=== PATIENT | female | born 1995 | race Caucasian/White ===

== ENCOUNTER 2017-12-03 12:11 | Outpatient (CLI) | END 2017-12-03 14:09 | disposition home or self-care (01) ==

== ENCOUNTER 2018-02-10 17:12 | Outpatient (CLI) | END 2018-02-10 21:05 | disposition home or self-care (01) ==

== ENCOUNTER 2018-02-19 08:21 | Inpatient (IN) | END 2018-02-22 13:40 | disposition home or self-care (01) | DRG 766 ==

== ENCOUNTER 2018-11-03 21:17 | Inpatient (IN) | payer OTHER ==
[~2018-11-03] VITALS: Ht 152.4 cm; Wt 84.0 kg
[~2018-11-03 21:17] MED LIST: PREN1TAB17 PO
[2018-11-03 21:25] VITALS: Ht 152.4 cm; Wt 84.0 kg
[2018-11-03 21:26] VITALS: BP 112/68; PULSE 110; RESP 17
[2018-11-03] MEDS ORDERED: LACTATED RINGER'S 1,000 ML IV SCH (22:00)
[2018-11-03] MEDS ORDERED: ACETAMINOPHEN 325 MG TAB PO ONE (22:00)
[2018-11-03] MEDS: LACTATED RINGER'S 1,000 ML IV SCH (23:59)
--- NOTE | 2018-11-04 01:05 | HP ---
Date/Time of Note Date/Time of Note DATE: 11/04/18 TIME: 01:00 OB - History Hx of Present Free Text/Dictation Patient is a 22-year-old 3 para 2 at 24 weeks of gestation with estimated date of delivery February 23, 2019 Patient just arrived from [facility] and immediately came here to the hospital directly from the airport She reports of having urinary tract infection in [facility] which she was rece iving IV antibiotic treatments daily Patient also reports of possible mosquito bites while in [facility] She is complaining of fevers, total body aches and flulike symptoms and back pain Patient reports positive movement, denies vaginal bleeding and leaking fluid, denies uterine contractions Estimated Due Date: Feb 23, 2019 : 3 Para: 2 Care: Limited Care Past Family/Social History * Past medical and past surgical history are noncontributory to this admission OB Admission Exam Vital Signs Vital Signs Vital Signs VS - Last 72 Hours, by Label Date Temp Pulse Resp B/P (MAP) Pulse Ox O2 O2 Flow FiO2 Time Delivery Rate 11/04/18 99.4 05:15 11/04/18 100.4 04:30 11/04/18 98.7 02:00 11/04/18 98.7 01:35 11/03/18 101.3 22:50 11/03/18 100.3 22:10 11/03/18 100.3 110 17 112/68 Room Air 21:26 (83) Physical Exam HEENT: WNL Heart: Rhythm Normal Lungs: Clear, Equal Abdomen: WNL Extremities: Normal Reflexes: Normal Membranes: Intact Heart Rate: 140's Accelerations: Accelerations Present Decelerations: No Decelerations Contractions on Admission: None Last 72 hours Lab Results CBC & BMP 11/03/18 22:07 Liver Function Test 11/03/18 22:07 Alanine Aminotransferase (ALT/SGPT) 20 Albumin 3.8 Alkaline Phosphatase 83 Aspartate Amino Transf (AST/SGOT) 26 Direct Bilirubin 0.00 Total Protein 7.1 PROCEDURE: US OB. CLINICAL INDICATION: labor TECHNIQUE: Transabdominal views of the pelvis are available for review. COMPARISON: Obstetric ultrasound February 10, 2018 FINDINGS: Noted is a single intrauterine gestation in breech lie with positive heart beat measuring 132 beats per minute. The biparietal diameter measures 6 cm corresponding to a gestational age 24 weeks 3 days. Femur length measures 4.4 cm corresponding to a gestational age 24 weeks 2 days. Abdominal circumference measures 20 cm corresponding to a gestational age 24 weeks 4 days. FL/AC ratio i s 21.9 which is within normal limits. Estimated weight is 703 g. Estimated date of delivery by ultrasound criteria is February 20, 2019. No gross anomaly is seen, however, anatomic survey was not performed. The amniotic fluid index was not calculated. Estimated date of delivery is February 20, 2019. The placenta is posterior fundal grade 1. There is no evidence of previa. Maternal cervix is closed measuring 4.6 cm in length. IMPRESSION: Single intrauterine gestation in breech lie with positive heart beat of calculated gestational age 24 weeks 3 days. No gross anomaly. Fluid qualitatively within normal limits. Placenta posterior fundal grade 1. .Esteban Willson MD, MD Date Time Electronically viewed and signed by .Esteban Willson MD, MD on 11/03/2018 22:20 .A/ CC: KO WALDRON MD [phone] PROCEDURE: US OB biophysical profile. CLINICAL INDICATION: Labor TECHNIQUE: Multiple sonographic images of the pelvis were obtained. The images were reviewed on a PACS workstation. COMPARISON: None FINDINGS: Noted is a single intrauterine gestation in breech lie with positive heart beat measuring 139 beats per minute. The amniotic fluid index was not measured, however, the volume is qualitatively normal with a maximum pocket measuring 8 cm in diameter. Biophysical profile: movement 2/2 tone 2/2. breathing 2/2 GUANACO 2/2 Total 12/31 IMPRESSION: Normal biophysical profile . . .Esteban Willson MD, Date Time Electronically viewed and signed by .Esteban Willson MD, MD on 11/03/2018 22:30 .A/ CC: KO WALDRON MD [phone] PROCEDURE: Renal US. CLINICAL INDICATION: Possible pyelonephritis, pain TECHNIQUE: Multiple sonographic images of the kidneys and bladder were obtained. The images were reviewed on a PACS workstation. COMPARISON: No prior studies are available for comparison. FINDINGS: The right kidney measures 10.4 cm and the left kidney 11.2 cm in length. No renal mass, calculus or hydronephrosis is seen bilaterally. No abnormality of the bladder is seen. IMPRESSION: No abnormality seen. RPTAT: HJES .Tian Bill MD, MD Date Time Electronically viewed and signed by .Tian Bill MD, MD on 11/04/2018 02:57 .S/ CC: KO WALDRON MD [phone] Microbiology INFLUENZA A & B BY EIA Final INFLU A&B BY EIA INFLUENZA A NEGATIVE (Ref Range Neg) INFLUENZA B NEGATIVE (Ref Range Neg) OB Assessment/Plan Reason for admission: other (Suspected pyelonephritis) Other plan: Admit to antepartum Urine culture and blood cultures x2 done IV antibiotics Infectious disease consult for possible Zika exposure Influenza A and B negative Copies To: CC: HUMERA NUNEZ MD ; KO WALDRON MD Nov 04, 2018 01:05
[2018-11-04] MEDS: CEFTRIAXONE 1 GM/50 ML (PMX) 50 ML IVPB SCH (01:37)
[2018-11-04] MEDS: SOD CHLORIDE 0.9% 1,000 ML IV SCH ×3 (01:37→16:30)
[2018-11-04] MEDS: OSELTAMIVIR 75 MG CAP PO SCH ×3 (02:44→21:10)
[2018-11-04] MEDS: ACETAMINOPHEN 325 MG TAB PO PRN ×4 (04:30→23:21)
[2018-11-04] MEDS: PRENATAL VITAMIN PO SCH (09:38)
--- NOTE | 2018-11-04 18:42 | QN ---
Documentation Comment progress note patient seen and evaluated no complaints vs tmax 100.4 ab gravid, positive left cva tenderness extremity no edema no calf tenderness a/ iup at 24 wks ga, pyelonephritis currently on iv antibiotics p/ f/u cultures continue present management HUMERA NUNEZ MD Nov 04, 2018 18:42
[2018-11-04] MEDS: LACTATED RINGER'S 1,000 ML IV SCH ×2 (20:40→23:59)
[2018-11-05] MEDS: CEFTRIAXONE 1 GM/50 ML (PMX) 50 ML IVPB SCH (01:04)
[2018-11-05] MEDS: SOD CHLORIDE 0.9% 1,000 ML IV SCH ×3 (01:53→19:30)
[2018-11-05] MEDS: OSELTAMIVIR 75 MG CAP PO SCH ×2 (09:20→21:09)
[2018-11-05] MEDS: PRENATAL VITAMIN PO SCH (09:22)
--- NOTE | 2018-11-05 17:43 | QN ---
Documentation Comment progress note patient seen and evaluated no complaints vs tmax 100.5 ab gravid, mild left cva tenderness extremity no edema no calf tenderness a/ iup at 24 wks ga, pyelonephritis currently on iv antibiotics p/ f/u cultures f/u infectious disease specialist continue present management HUMERA NUNEZ MD Nov 05, 2018 17:43
--- NOTE | 2018-11-05 19:10 | CONS ---
DATE OF ADMISSION: 11/03/2018 DATE OF CONSULTATION: 11/05/2018 TYPE OF CONSULTATION: Infectious disease. REASON FOR CONSULTATION: Antibiotic management. HISTORY OF PRESENT ILLNESS: Nadeen Collazo is a 22-year-old female, 3, para 2 at 24 weeks gesta tion. Her estimated delivery date is 02/23/2019. She arrived from [facility] and came to the [facility] from the airport. She reports having urinary tract infection in [facility] for which she w as receiving IV antibiotics on a daily basis. She has fever, total body aches, flu-like symptoms and back pain. She also notes that she has multiple mosquito bites. PAST MEDICAL HISTORY: She is 3, para 2. She has no other medical history of high blood pres sure, diabetes or heart disease. She has no vaginal bleeding or leaking fluid. FAMILY HISTORY: Noncontributory. SOCIAL HISTORY: She does not smoke, drink or abuse drugs. ALLERGIES: NONE TO PENICILLIN, SULFA OR FOODS. MEDICATIONS: Per chart. REVIEW OF SYSTEMS: As per HPI. PHYSICAL EXAMINATION: GENERAL: The patient is well-developed, well-nourished female, alert, responsive, in no acute distre ss. VITAL SIGNS: Stable. She is afebrile. SKIN: Without generalized rash. HEENT: Within normal limits. NECK: Supple. LYMPH NODES: None palpable. CHEST: Decreased breath sounds at the bases. HEART: Without murmur or gallop. ABDOMEN: Soft. She is obviously 24 weeks. No organosplenomegaly or masses. EXTREMITIES: Without cyanosis, clubbing, or edema. RECTAL AND GENITAL: Deferred. NEUROLOGIC: No focal neurological abnormality. ANCILLARY LABORATORY DATA: Her white count is 11.8, H and H of 10.9 and 32.7, platelet count 267,000 . BUN and creatinine 4/0.50, glucose of 94. An ultrasound was done, which showed a single intrauter ine gestation and breech lie with positive heartbeat. No gross anomalies. Urine culture is gr owing Enterococcus and Lenore albicans. Blood cultures are negative. She only has 20,000 to 30,000 colony-forming units of enterococcus and less than 10,000 colony-forming units of Lenore per mL. S he is currently on ceftriaxone. My feeling is that the urine culture is either a contaminant or not relevant. I am going to repeat a urine culture. Continue her on Rocephin or ceftriaxone. I will di ctate my findings to [employer] to Dr. Nunez and Dr. Portillo. Dictated By: SHANAE ROMANO MD, JD/NTS Conf#: [id number] DID#: [id number] CC: HUMERA NUNEZ MD;*EndCC*
[2018-11-06] MEDS: CEFTRIAXONE 1 GM/50 ML (PMX) 50 ML IVPB SCH (03:00)
[2018-11-06] MEDS: SOD CHLORIDE 0.9% 1,000 ML IV SCH ×2 (03:00)
[2018-11-06] MEDS: PRENATAL VITAMIN PO SCH (09:09)
[2018-11-06] MEDS: OSELTAMIVIR 75 MG CAP PO SCH (09:15)
--- NOTE | 2018-11-06 15:01 | CONS ---
Assessment/Plan Assessment/Plan Hospital Course (Demo Recall) Patient is alert had been afebrile denies dysuria hematuria frequency or urgency. She remains on Rocephin. Physical examination well-developed well- nourished young woman who is alert in no distress head atraumatic normocephalic neck is supple chest rise symmetrical breath sounds clear heart S1-S2 abdomen soft bowel sounds present Assessment: 1. Resolving UTI 2. 24 weeks gestation 3. Obesity Plan: Patient is doing better, pending repeat urine culture, possible discharge home today of antibiotics Consultation Date/Type/Reason Admit Date/Time Nov 03, 2018 at 23:45 Initial Consult Date Type of Consult id Date/Time of Note DATE: 11/06/18 TIME: 15:01 Exam/Review of Systems Exam Vitals Vital Signs Date Temp Pulse Resp B/P (MAP) Pulse Ox O2 O2 Flow FiO2 Time Delivery Rate 11/05/18 100.5 00:00 11/03/18 110 17 112/68 Room Air 21:26 (83) Intake and Output 11/05/18 11/05/18 11/06/18 1515:00 23:00 07:00 IntakeIntake Total 1000 ml 250 ml BalanceBalance 1000 ml 250 ml Results Result Diagram: 11/03/18220611/03/182206 Medications Medication Current Medications Lactated Ringer's 1,000 ml @ 125 mls/hr Q8H IV ; Start 11/03/18 at 23:59 Prenat Multivit/ [place]/Iron/Folic Ac () 1 tab DAILY PO Last administered on 11/06/18at 09:09; Admin Dose 1 TAB; Start 11/04/18 at 09:00 Acetaminophen (Tylenol Tab) 650 mg Q4H PRN PO .PAIN OR TEMP Last administered on 11/04/18at 23:21; Admin Dose 650 MG; Start 11/04/18 at 00:00 Ceftriaxone Sodium 50 ml @ 100 mls/hr Q24H IVPB Last administered on 11/06/18at 03:00; Admin Dose 100 MLS/HR; Start 11/04/18 at 01:00 Sodium Chloride 1,000 ml @ 125 mls/hr Q8H IV Last administered on 11/06/18at 03:00; Admin Dose 125 MLS/HR; Start 11/04/18 at 00:30 ASHLEIGH GARCIA NP Nov 06, 2018 15:01
[2018-11-06] MEDS: LACTATED RINGER'S 1,000 ML IV SCH (16:30)
--- NOTE | 2018-11-06 20:08 | QN ---
Documentation Comment 22 y.o been on rocephin , tamiflu last temp 100.5 on yesterday am today WBC sl higher ID saw the patient MARIBEL MURILLO MD Nov 06, 2018 20:08
[2018-11-07] MEDS: SOD CHLORIDE 0.9% 1,000 ML IV SCH ×6 (00:07→23:30)
[2018-11-07] MEDS: CEFTRIAXONE 1 GM/50 ML (PMX) 50 ML IVPB SCH (01:05)
[2018-11-07] MEDS: PRENATAL VITAMIN PO SCH (08:50)
--- NOTE | 2018-11-07 21:57 | QN ---
Documentation Comment Patient denies any fever or chills. Denies any leaking of fluid, vaginal bleeding or decreased movement. General appearance: Alert and oriented x4 does not appear to be in any acute distress Abdomen: Soft, gravid, fundal height consider gestational age, no tenderness, no tenderness, no guarding, no rigidity There is CVA tenderness in the right side noted still VS - Last 72 Hours, by Label Date Temp Pulse Resp B/P (MAP) Pulse Ox O2 O2 Flow FiO2 Time Delivery Rate 11/05/18 100.5 00:00 11/04/18 102.5 23:21 Assessment IUP at 24 weeks and 4 days Pyelonephritis Undergoing treatment with Rocephin every 24 hours Currently Fever improved. T < 100.3 Renal ultrasound normal. Patient pyelonephritis being followed by ID Resident of [facility] area, had mosquito bites Physical labs are pending Continue same antibiotics Follow-up with a urine culture Continue IV hydration Intermittent monitoring Follow-up with perinatologist and ID in [place] MADELEINE WILSON MD Nov 07, 2018 21:57
[2018-11-08] MEDS: CEFTRIAXONE 1 GM/50 ML (PMX) 50 ML IVPB SCH
[2018-11-08] MEDS: SOD CHLORIDE 0.9% 1,000 ML IV SCH ×4 (04:20→19:30)
[2018-11-08] MEDS: PRENATAL VITAMIN PO SCH (09:11)
--- NOTE | 2018-11-08 10:26 | QN ---
Documentation Comment 24+wks GA Pyelonephritis on Rocephin smptoms improved U/u Enterococcus NST reassuring for GA [place] No CTxs pelvic deferred --->Continuous antibiotics --->Clsoe Observation GEORGE BELLAMY M.D. Nov 08, 2018 10:26
[2018-11-08] MEDS ORDERED: SOD CHLORIDE 0.9% 1,000 ML IV SCH (21:00)
[2018-11-09] MEDS: CEFTRIAXONE 1 GM/50 ML (PMX) 50 ML IVPB SCH (01:05)
--- NOTE | 2018-11-09 09:48 | QN ---
Documentation Comment progress note patient seen and evaluated no complaints vs stable afebrile ab gravid, mild left cva tenderness extremity no edema no calf tenderness a/ iup at 24 wks ga, pyelonephritis symptoms resolved stable afebrile p/discharge home HUMERA NUNEZ MD Nov 09, 2018 09:48
--- NOTE | 2018-11-10 08:23 | DS ---
DATE OF ADMISSION: 11/03/2018 DATE OF DISCHARGE: 11/09/2018 PRIMARY DIAGNOSIS: Intrauterine at 24 weeks gestational age with pyelonephritis, undeliver ed. PROCEDURE: None. CONDITION ON DISCHARGE: Stable. DIET: Regular. MEDICATIONS ON DISCHARGE: Macrobid 100 mg p.o. b.i.d., #14. ACTIVITIES: As tolerated. DISCHARGE SUMMARY: Ms. Nadeen Collazo was admitted on 11/04/2018 secondary to symptomatic pyelonephriti s. She was given IV antibiotics. Currently denies any headache, nausea, vomiting, shortness of kelsey th, or visual changes. She will be discharged home today, on 11/09/2018, with strict labor p recautions and kick count. The patient was advised to follow up in clinic, especially for the Zika virus results secondary to recent visit to [facility] [place]. Dictated By: HUMERA WHEELER/ZONIA Conf#: [id number] DID#: [id number]
== END 2018-11-09 10:10 | disposition home or self-care (01) | DRG 833 ==
LOC: OBT 21:17 → L-D 21:19 → OBT 23:45 → L-D 23:45
PROVIDERS: ADMIT Obstetrics & Gynecology; ATTEND Obstetrics & Gynecology
DX: O23.02 Infections of kidney in pregnancy, second trimester (principal); O99.212 Obesity complicating pregnancy, second trimester; Z3A.24 24 weeks gestation of pregnancy
CPT/HCPCS: 76775; 76815; 76817; 76818; 80053; 81001; 81003; 85025; 87086; 87400; G0463; J0696; J7030; J7120

== ENCOUNTER 2019-02-09 13:55 | Inpatient (IN) | payer OTHER ==
[~2019-02-09] VITALS: Ht 152.4 cm; Wt 198.0 kg
[~2019-02-09 13:55] MED LIST changes: +FER325 ORAL; +LABE100T7 PO; +PANT40TA4 PO; +PRED10TA PO; +PRED20TA PO; +SUMA25TA34 PO; +VALA500T PO
[2019-02-09 15:20] VITALS: BP 124/77; PULSE 98; RESP 19
[2019-02-09] MEDS ORDERED: ACETAMINOPHEN 325 MG TAB PO PRN (17:00)
[2019-02-09] MEDS: LACTATED RINGER'S 1,000 ML IV SCH (17:07)
[2019-02-10] MEDS: LACTATED RINGER'S 1,000 ML IV SCH ×3 (00:36→19:00)
[2019-02-10] MEDS ORDERED: PRENATAL VITAMIN PO SCH (09:00)
[2019-02-10] MEDS ORDERED: CARBOPROST 250 MCG INJ IM PRN (14:00)
[2019-02-10] MEDS ORDERED: METHYLERGONOVINE 0.2 MG INJ IM PRN (14:00)
[2019-02-10] MEDS ORDERED: MISOPROSTOL 200 MCG TAB PR PRN (14:00)
[2019-02-10] MEDS ORDERED: CEFAZOLIN 2 GM/50 ML (PMX) 50 ML IVPB SCH (14:00)
[2019-02-10] MEDS ORDERED: OXYTOCIN 30 UNITS/LR 500 ML IV PRN (14:00)
[2019-02-11] MEDS: LACTATED RINGER'S 1,000 ML IV SCH ×5 (03:04→23:20)
[2019-02-11] MEDS ORDERED: ONDANSETRON 4 MG INJ ONE (06:02)
[2019-02-11] MEDS ORDERED: OXYTOCIN 10 UNIT INJ ONE (06:02)
[2019-02-11] MEDS ORDERED: OXYTOCIN 30 UNITS/LR 500 ML BAG IV ONE (06:02)
[2019-02-11] MEDS ORDERED: morphine SULFATE/PF (10 MG/10 ML) INJ ONE (06:02)
[2019-02-11] MEDS ORDERED: OXYTOCIN 30 UNITS/LR 500 ML IV SCH ×3 (07:18→16:56)
[2019-02-11] MEDS ORDERED: METHYLERGONOVINE 0.2 MG INJ IM PRN ×3 (07:30→17:00)
[2019-02-11] MEDS ORDERED: OXYTOCIN 30 UNITS/LR 500 ML IV PRN ×3 (07:30→17:00)
[2019-02-11] MEDS ORDERED: MISOPROSTOL 200 MCG TAB PR PRN ×3 (07:30→17:00)
[2019-02-11] MEDS ORDERED: CARBOPROST 250 MCG INJ IM PRN ×3 (07:30→17:00)
[2019-02-11] MEDS ORDERED: NACL 0.9% 3 ML SYG IV SCH ×3 (07:30→17:00)
[2019-02-11] MEDS ORDERED: DIPHENHYDRAMINE 50 MG INJ IV PRN (07:30)
[2019-02-11] MEDS ORDERED: morphine 2 MG INJ IV PRN (07:30)
[2019-02-11] MEDS ORDERED: NALOXONE (0.4 MG/ML) INJ IV PRN (07:30)
[2019-02-11] MEDS ORDERED: ONDANSETRON 4 MG INJ IV PRN (07:30)
[2019-02-11 09:50] VITALS: BP 135/84; PULSE 67; RESP 17
[2019-02-11 11:45] VITALS: BP 121/76; PULSE 68; RESP 18
[2019-02-11 16:55] VITALS: BP 128/80; PULSE 70; RESP 17
[2019-02-11] MEDS ORDERED: LANOLIN HPA 1 PKT TOP PRN (17:00)
[2019-02-11] MEDS ORDERED: NA PHOSPHATE/BIPHOS 133 ML ENEMA PR PRN (17:00)
[2019-02-11 20:00] VITALS: BP 123/77; PULSE 73; RESP 20
[2019-02-11] MEDS: KETOROLAC 30 MG INJ IV PRN (20:26)
[2019-02-11] MEDS: SENNA/DOCUSATE NA (8.6MG/50MG) TAB PO SCH (20:30)
[2019-02-12] MEDS: KETOROLAC 30 MG INJ IV PRN (04:03)
[2019-02-12 04:16] VITALS: BP 108/73; PULSE 76; RESP 20
[2019-02-12 08:00] VITALS: BP 115/87; PULSE 60; RESP 18
[2019-02-12] MEDS: LACTATED RINGER'S 1,000 ML IV SCH (08:56)
[2019-02-12] MEDS: SENNA/DOCUSATE NA (8.6MG/50MG) TAB PO SCH ×2 (09:23→21:30)
[2019-02-12] MEDS: OXYCODONE/ACETAMINOPHEN (5/325) TAB PO PRN ×2 (11:30→21:30)
[2019-02-12 15:39] VITALS: BP 136/90; PULSE 88; RESP 16
[2019-02-12] MEDS ORDERED: BISACODYL 10 MG SUPP PR ONE (16:00)
[2019-02-12] MEDS ORDERED: IBUPROFEN 600 MG TAB PO PRN (16:00)
[2019-02-12] MEDS: IBUPROFEN 800 MG TAB PO PRN (16:20)
[2019-02-12 21:30] VITALS: BP 121/64; PULSE 63; RESP 20
[2019-02-12] MEDS: FERROUS SULFATE (EC) 325 MG TAB PO SCH (21:30)
[2019-02-13] MEDS: IBUPROFEN 800 MG TAB PO PRN ×2 (00:49→16:37)
[2019-02-13] MEDS: OXYCODONE/ACETAMINOPHEN (5/325) TAB PO PRN ×3 (04:25→22:23)
[2019-02-13 04:28] VITALS: BP 116/64; PULSE 67; RESP 20
[2019-02-13 08:00] VITALS: BP 130/88; PULSE 59; RESP 18
[2019-02-13] MEDS: SENNA/DOCUSATE NA (8.6MG/50MG) TAB PO SCH ×2 (08:11→22:23)
[2019-02-13] MEDS: FERROUS SULFATE (EC) 325 MG TAB PO SCH ×2 (10:06→22:23)
[2019-02-13 16:05] VITALS: BP 121/85; PULSE 80; RESP 18
[2019-02-13 19:45] VITALS: BP 127/82; PULSE 70; RESP 18
[2019-02-14 04:05] VITALS: BP 136/89; PULSE 71; RESP 19
[2019-02-14 08:00] VITALS: BP 128/81; PULSE 89; RESP 16
[2019-02-14] MEDS: FERROUS SULFATE (EC) 325 MG TAB PO SCH (08:16)
[2019-02-14] MEDS: SENNA/DOCUSATE NA (8.6MG/50MG) TAB PO SCH (08:16)
[2019-02-14] MEDS: OXYCODONE/ACETAMINOPHEN (5/325) TAB PO PRN (11:31)
== END 2019-02-14 16:48 | disposition home or self-care (01) | DRG 785 ==
LOC: OBT 13:55 → L-D 13:55 → OBT 15:38 → L-D 15:38 → PP1 17:56 → L-D 02-11 02:31 → PP1 02-11 10:21
PROVIDERS: ADMIT Obstetrics & Gynecology; ATTEND Obstetrics & Gynecology
PROC: 0UT70ZZ Resection of Bilateral Fallopian Tubes, Open Approach (ICD-10-PCS; 2019-02-11)
PROC: 10907ZC Drainage of Amniotic Fluid, Therapeutic from Products of Conception, Via Natural or Artificial Opening (ICD-10-PCS; 2019-02-11)
PROC: 10D00Z1 Extraction of Products of Conception, Low, Open Approach (ICD-10-PCS; principal; 2019-02-11 06:00)
DX: O34.211 Maternal care for low transverse scar from previous cesarean delivery (principal); E66.01 Morbid (severe) obesity due to excess calories; O99.213 Obesity complicating pregnancy, third trimester; O11.4 Pre-existing hypertension with pre-eclampsia, complicating childbirth; Z37.0 Single live birth; Z3A.38 38 weeks gestation of pregnancy
CPT/HCPCS: 76818; 80053; 81001; 82575; 84156; 84560; 85025; 85610; 85730; 86592; 86850; 86900; 86901; 87340; 88302; 99464; G0463; J0690; J1885; J2274; J2405; J2590; J7120